=== PATIENT | male | born 1995 | race Asian ===

== ENCOUNTER → 2018-02-21 | Outpatient (REF) ==
[2018-02-24 00:08] LABS: QUANTIFERON GOLD TB Negative (Negative); TB Test (QFT) Antigen 0.04 IU/mL (.); TB Test (QFT) Antigen Minus Ni 0.01 IU/mL (.); TB Test (QFT) Mitogen >10.00 IU/mL (.); TB Test (QFT) Nil 0.03 IU/mL (.)
== END ==
LOC: M LAB 11:05
DX: Z01.89 Encounter for other specified special examinations (principal)

== ENCOUNTER 2018-12-02 02:25 | Emergency (ER) | payer OTHER ==
[~2018-12-02] VITALS: Ht 180.3 cm; Wt 70.5 kg
[2018-12-02 02:25] VITALS: BP 156/80
--- NOTE | 2018-12-02 03:10 | REPVR ---
EXAM: US Scrotum EXAM DATE/TIME: 12/02/2018 2:57 AM CLINICAL HISTORY: 23 years old, male; Pain; Scrotum pain; Additional info: Pain left testicle TECHNIQUE: Real-time ultrasound of the scrotum and contents with color Doppler and image documentation. COMPARISON: No relevant prior studies available. FINDINGS: Right Testicle: Normal measuring 4.5 x 3.1 x 2.7 cm. No mass. No torsion. Normal vascular flow. Left Testicle: Measures 4.6 x 2.6 x 2.6 centimeter. Microcalcifications in the left testis. No mass. No torsion. Normal vascular flow. Epididymides: Cysts in the head of the left epididymis largest measuring 1.6 x 0.3 x 8.1 mm. Right is unremarkable. Scrotum: Normal. IMPRESSION: No evidence of testicular torsion. Calcifications in the left testes, nonspecific, followup in 1 year is recommended. Left epididymal cysts. Electronically signed by: Chitra Cisse On 12/02/2018 03:10:22 AM
[2018-12-02] MEDS ORDERED: NORCO 5/325MG TABLET (BULK FOR ED) PO ONE (06:45)
--- NOTE | 2018-12-04 09:07 | ED PDOC ---
Post-Departure Follow-Up ft cynthia fp faxed formal report of scrotal us for fu Tom Houser MD Dec 04, 2018 09:07
== END 2018-12-02 07:02 | disposition home or self-care (01) ==
LOC: M ED 02:25
DX: N50.3 Cyst of epididymis (principal)

== ENCOUNTER → 2018-12-04 | Outpatient (REF) | payer OTHER ==
[2018-12-04 21:11] LABS: APPEARANCE, URINE HAZY (CLEAR); BACTERIA, URINE AUTO NEGATIVE (NEGATIVE); BILIRUBIN, URINE AUTO NEGATIVE (NEGATIVE); BLOOD, URINE BLOOD NEGATIVE (NEGATIVE); CALCIUM OXALATE CRYSTALS SMALL; COLOR, URINE YELLOW (YELLOW); GLUCOSE, URINE (UA) AUTO NEGATIVE (NEGATIVE); KETONE, URINE AUTO NEGATIVE (NEGATIVE); LEUKOCYTE ESTERASE, URINE AUTO NEGATIVE (NEGATIVE); MUCUS, URINE LARGE (NEGATIVE); NITRITE, URINE AUTO NEGATIVE (NEGATIVE); PROTEIN, URINE AUTO NEGATIVE (NEGATIVE); RBC, URINE AUTO 5 /HPF (0-3); SPECIFIC GRAVITY URINE AUTO 1.029 (1.002-1.035); SQUAMOUS EPITHELIAL CELL UR AU 0 /HPF (0-6); WBC, URINE AUTO 1 /HPF (0-3)
[2018-12-04 22:59] LABS: CHLAMYDIA DNA AMPLIFICATION NEGATIVE (NEGATIVE); GC DNA AMPLIFICATION NEGATIVE (NEGATIVE)
== END ==
LOC: M SMT 17:24
PROVIDERS: ATTEND Nurse Practitioner Family
DX: N50.819 Testicular pain, unspecified (principal)

== ENCOUNTER → 2018-12-05 | Outpatient (CLI) | payer OTHER ==
--- NOTE | 2018-12-06 04:55 | REP ---
Clinical: Testicular pain. Technique: Axial noncontrast images from the lung bases to the pubic symphysis with coronal and sagittal re-formations. Findings: Lung bases are clear. Visualized heart and pericardium normal. Liver, spleen, pancreas, gallbladder, bilateral adrenal glands and kidneys are normal for noncontrast evaluation. The enteric system is without obstruction or acute inflammatory process. Normal terminal ileum and appendix are identified in the right lower quadrant. Pelvis demonstrates normal bladder and age appropriate prostate/seminal vesicles. Scrotum appears relatively normal by noncontrast CT evaluation. No ascites. No inguinal hernia. No free air. No obvious intraperitoneal or retroperitoneal adenopathy. Abdominal aorta without aneurysm. Musculoskeletal structures without focal osseous abnormality. Impression: Normal noncontrast CT of the abdomen and pelvis. Electronically Signed by Loki Seay MD 12/06/2018 04:46 A
== END ==
LOC: M RAD 17:21
PROVIDERS: ATTEND Nurse Practitioner Family
DX: N50.819 Testicular pain, unspecified (principal)

== ENCOUNTER → 2020-01-03 | Outpatient (CLI) | payer OTHER ==
--- NOTE | 2020-01-03 08:25 | REP ---
Renal ultrasound: Comparison is 12/02/2018. The right testis measures 4.5 x 2: 92.9 cm. Left testis measures 4.6 x 2.4 x 2.9 cm. The testes are normal size. There are no solid or cystic testicular masses. There are micro calcifications in the upper pole of the left testis as previously. The there are two left epididymal head cysts, largest measuring 11 mm. The right epididymal head is unremarkable. There is vascular flow in both testes. The Doppler resistive index in the parenchymal arteries of the left testis is 0.67. Right testis 0.58. Impression: No interval change. There are micro calcifications in the left testis upper pole as previously. There are no testicular masses or cysts. There are small left epididymal head cysts, unchanged. Periodic scrotal ultrasound surveillance might be considered in view of the microcalcifications. Electronically Signed by Dick Arroyo MD 01/03/2020 08:17 A
== END ==
LOC: M RAD 07:05
PROVIDERS: ATTEND Nurse Practitioner Family
DX: N50.3 Cyst of epididymis (principal)

== ENCOUNTER → 2020-01-06 | Outpatient (REF) | payer OTHER ==
[2020-01-06 14:57] LABS: APPEARANCE, URINE HAZY (CLEAR); BACTERIA, URINE AUTO NEGATIVE (NEGATIVE); BILIRUBIN, URINE AUTO NEGATIVE (NEGATIVE); BLOOD, URINE BLOOD NEGATIVE (NEGATIVE); CALCIUM OXALATE CRYSTALS SMALL; COLOR, URINE YELLOW (YELLOW); GLUCOSE, URINE (UA) AUTO NEGATIVE (NEGATIVE); KETONE, URINE AUTO NEGATIVE (NEGATIVE); LEUKOCYTE ESTERASE, URINE AUTO NEGATIVE (NEGATIVE); MUCUS, URINE SMALL (NEGATIVE); NITRITE, URINE AUTO NEGATIVE (NEGATIVE); PROTEIN, URINE AUTO NEGATIVE (NEGATIVE); RBC, URINE AUTO 0 /HPF (0-3); SPECIFIC GRAVITY URINE AUTO 1.021 (1.002-1.035); SQUAMOUS EPITHELIAL CELL UR AU 0 /HPF (0-6); UROBILINOGEN, URINE AUTO 0.2 mg/dL (0.0-2.0); WBC, URINE AUTO 1 /HPF (0-3)
== END ==
LOC: M SMT 13:11
PROVIDERS: ATTEND Nurse Practitioner Family
DX: R31.29 Other microscopic hematuria (principal)
CPT/HCPCS: 81001; 87086; G0463

== ENCOUNTER → 2020-01-07 | Outpatient (CLI) | payer OTHER ==
--- NOTE | 2020-01-07 16:01 | REP ---
Clinical: Groin pain. Technique: Real time duncan scale ultrasound examination using linear high frequency transducer. Findings: Ultrasound examination of the left groin demonstrates no fluid collection, mass lesion, or hernia. Few mildly prominent lymph nodes are identified measuring up to 14 x 5 x 8 mm. Impression: 1. No hernia. 2. Few mildly nonspecific prominent lymph nodes. Electronically Signed by Loki Seay MD 01/07/2020 03:53 P
== END ==
LOC: M RAD 15:23
PROVIDERS: ATTEND Nurse Practitioner Family
DX: R10.2 Pelvic and perineal pain (principal)

== ENCOUNTER 2020-01-23 12:07 | Emergency (ER) | payer OTHER ==
[~2020-01-23] VITALS: Ht 180.3 cm; Wt 78.9 kg
[2020-01-23 12:07] VITALS: BP 134/59
--- NOTE | 2020-01-23 14:09 | REP ---
ULTRASOUND SOFT TISSUES AT BASE OF PENIS: Real-time sonographic evaluation of the soft tissues at the base of the penis is performed at the site of a palpable lump. At the ventral base of the penis in a subcutaneous location, superficial to the spongiosum, is an oval hypoechoic nodule with internal blood flow with duplex Doppler evaluation. It measures 7 x 4 x 10 mm. This may represent a lymph node. I see no fluid collection. Electronically Signed by Dick Giang MD 01/23/2020 02:43 P
== END 2020-01-23 14:26 | disposition home or self-care (01) ==
LOC: M ED 12:07
DX: R59.0 Localized enlarged lymph nodes (principal)